=== PATIENT | female | born 1985 | race Caucasian/White ===

== ENCOUNTER 2024-05-06 03:50 | Emergency (ER) | payer SELFPAY ==
[~2024-05-06] VITALS: Ht 170.2 cm; Wt 75.0 kg
[~2024-05-06 03:50] MED LIST: NO HOME MEDS
[2024-05-06 03:52] VITALS: BP 152/98; PULSE 89; RESP 18; TEMP 98.7; O2SAT 99
== END 2024-05-06 06:01 | disposition left against medical advice (07) ==
LOC: ER 03:50
DX: L02.11 Cutaneous abscess of neck (principal); Z53.21 Procedure and treatment not carried out due to patient leaving prior to being seen by health care provider; Z88.1 Allergy status to other antibiotic agents; Z88.0 Allergy status to penicillin; Z88.8 Allergy status to other drugs, medicaments and biological substances